=== PATIENT | male | born 1955 | race Caucasian/White ===

== ENCOUNTER 2017-07-25 11:14 | Inpatient (IN) | payer OTHER ==
[~2017-07-25] VITALS: Ht 180.3 cm; Wt 94.6 kg
[2017-07-25 11:15] VITALS: O2SAT 98
[2017-07-25] MEDS ORDERED: ceFAZolin 2 GM PREMIX 50 ML ONE (11:24)
[2017-07-25] MEDS ORDERED: TETANUS IMMUNE GLOBULIN (HUMAN) 250 UNITS/ML SYRINGE ONE (11:25)
[2017-07-25] MEDS ORDERED: HYDROmorphone HCL PF 1 MG/ML VIAL ONE (11:29)
[2017-07-25] MEDS ORDERED: ONDANSETRON HCL 4 MG/2 ML VIAL ONE (11:30)
[2017-07-25 11:36] LABS: AUTOMATED NEUTROPHIL # 3.4 TH/MM3 (1.8-7.7); BASOPHIL % 0.6 % (0.0-2.0); EOSINOPHIL # 0.1 TH/MM3 (0-0.4); EOSINOPHIL % 1.9 % (0.0-4.0); HEMATOCRIT 43.2 % (39.0-51.0); HEMO FLAGS DIFF FINAL; LYMPH % 32.2 % (9.0-44.0); LYMPHOCYTE # 1.8 TH/MM3 (1.0-4.8); MEAN CELL VOLUME 90.8 FL (80.0-100.0); MEAN CORPUSCULAR HEMOGLOBIN 31.6 PG (27.0-34.0); MEAN CORPUSCULAR HGB CONC 34.8 % (32.0-36.0); MONO % 5.2 % (0.0-8.0); NEUT % 60.1 % (16.0-70.0); PLATELET COUNT 164 TH/MM3 (150-450); RED BLOOD COUNT 4.77 MIL/MM3 (4.50-5.90); RED CELL DISTRIBUTION WIDTH 13.2 % (11.6-17.2); WHITE BLOOD COUNT 5.7 TH/MM3 (4.0-11.0)
[2017-07-25 11:40] LABS: I-STAT SODIUM 140 MMOL/L (138-146)
[2017-07-25 11:42] LABS: APTT (PATIENT) 23.1 SEC (24.3-30.1); PROTHROMBIN TIME - PATIENT 10.7 SEC (9.8-11.6)
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
[2017-07-25] MEDS ORDERED: LIDOCAINE 2%/EPINEPHrine 1:100,000 20ML MDV NERV BLOCK ONE (11:45)
[2017-07-25] MEDS ORDERED: IOHEXOL 350 MG/ML 10 ML VIAL (for RAD DIAG) IVCONTRAST ONE (11:53)
[2017-07-25] MEDS ORDERED: PHENYLEPH/NS 1000 MCG/10 ML SYR IV ONE (12:00)
[2017-07-25] MEDS ORDERED: PHENYLEPHRINE HCL 10 MG/ML VIAL IV ONE (12:00)
[2017-07-25] MEDS ORDERED: LACTATED RINGER'S 1000 ML INJ 1,000 ML IV ONE (12:00)
[2017-07-25] MEDS ORDERED: MIDAZOLAM HCL 2 MG/2 ML VIAL IV ONE (12:00)
[2017-07-25] MEDS ORDERED: LIDOCAINE HCL 1% PF 5 ML AMPULE OTHER ONE (12:00)
[2017-07-25] MEDS ORDERED: LABETALOL HCL 100 MG/20 ML VIAL IV ONE (12:00)
[2017-07-25] MEDS ORDERED: PROPOFOL 200 MG/20 ML AMP IV ONE (12:00)
[2017-07-25] MEDS ORDERED: ONDANSETRON HCL 4 MG/2 ML VIAL IV PUSH ONE (12:00)
[2017-07-25] MEDS ORDERED: MORPHINE SULFATE 4 MG/ML INJ IV ONE (12:00)
[2017-07-25] MEDS ORDERED: ePHEDrine/NS 25 MG/5 ML SYR IV ONE (12:00)
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
[2017-07-25] MEDS ORDERED: DIPHTH/TETANUS/ACEL PERTUSSIS (BOOSTER) 0.5 ML VIAL/PFS IM ONE (12:04)
[2017-07-25] MEDS ORDERED: ceFAZolin 2 GM PREMIX 50 ML IV STA (12:04)
[2017-07-25 12:05] LABS: ALCOHOL LESS THAN 3 MG/DL (0-5)
[2017-07-25 12:14] VITALS: BP 164/85; PULSE 68; RESP 20; O2SAT 100
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
[2017-07-25 13:11] VITALS: BP 162/87; PULSE 80; RESP 16; O2SAT 99
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
[2017-07-25 13:49] VITALS: BP 147/74; PULSE 70; RESP 20; O2SAT 99
[2017-07-25] MEDS ORDERED: ACETAMINOPHEN 1000 MG/100 ML 100 ML IV ONE (14:05)
[2017-07-25] MEDS ORDERED: GENTAMICIN SULFATE 80 MG/2 ML VIAL ONE (14:31)
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
--- NOTE | 2017-07-25 16:53 | RADRPT ---
EXAM DATE/TIME: 07/25/2017 16:22 [facility] COMPARISON: No previous studies available for comparison. INDICATIONS : Post ORIF, external fixation right wrist MEDICAL HISTORY : None. SURGICAL HISTORY : None. ENCOUNTER: Subsequent ACUITY: 1 day PAIN SCORE: Non-responsive. LOCATION: Right Wrist FINDINGS: 4 magnified C-arm spot views are centered over the wrist and labeled right. These reveal an orthopedi c plate along the palmar cortex of the distal radius with multiple anchoring screws. Good alignment n oted. 2 screws overlie the third metacarpal and two the midforearm consistent with an external fixato r. CONCLUSION: Limited images as detailed above. López Alvarenga Jr., MD on July 25, 2017 at 16:46 Board Certified Radiologist. This report was verified electronically.
[2017-07-25] MEDS ORDERED: ONDANSETRON HCL 4 MG/2 ML VIAL IV PUSH PRN ×2 (17:00→17:15)
[2017-07-25] MEDS ORDERED: ACETAMINOPHEN/HYDROcodone 325 MG/5 MG TAB PO PRN ×2 (17:00)
[2017-07-25] MEDS ORDERED: ACETAMINOPHEN 325 MG TAB PO PRN (17:00)
[2017-07-25] MEDS ORDERED: MAGNESIUM HYDROXIDE SUSP 30 ML CUP PO PRN (17:00)
[2017-07-25] MEDS ORDERED: SODIUM CHLORIDE 0.9% FLUSH 10 ML FLUSH IV FLUSH PRN ×2 (17:00→17:15)
[2017-07-25] MEDS ORDERED: MORPHINE SULFATE 4 MG/ML INJ IV PUSH PRN (17:00)
[2017-07-25] MEDS ORDERED: ENALAPRILAT 1.25 MG/ML VIAL IV PUSH PRN (17:15)
[2017-07-25] MEDS ORDERED: DO NOT ADM ANY ANTICOAGULANT DRUGS PRN (17:30)
[2017-07-25] MEDS ORDERED: *morphine SULFATE 8 MG/ML PERIprocedure ONLY ONE ×2 (17:48→17:57)
[2017-07-25] MEDS ORDERED: PANTOPRAZOLE SODIUM 40 MG VIAL IVP SCH (18:00)
--- NOTE | 2017-07-25 18:32 | RADRPT ---
EXAM DATE/TIME: 07/25/2017 18:07 [facility] COMPARISON: WRIST RIGHT COMPLETE ([id number]), July 25, 2017, 16:22. INDICATIONS : Post operative images. MEDICAL HISTORY : Prior fracture. SURGICAL HISTORY : Prior surgical repair of fracture. ENCOUNTER: Initial ACUITY: 1 day PAIN SCORE: Non-responsive. LOCATION: Right wrist. FINDINGS: 3 views of the right wrist show an external fixator device. An orthopedic plate is seen involving the palmar cortex of the distal radius with multiple anchoring screws. Good alignment appreciated. Ulnar styloid fracture and distal radial metaphyseal fracture are noted. The metaphyseal fracture does ext end to the articular surface. CONCLUSION: Fractures with orthopedic hardware as detailed above. López Alvarenga Jr., MD on July 25, 2017 at 18:26 Board Certified Radiologist. This report was verified electronically.
[2017-07-25] MEDS: SODIUM CHLORIDE 0.9% FLUSH 10 ML FLUSH IV FLUSH SCH (20:39)
[2017-07-25 20:40] VITALS: BP 144/87; PULSE 67; RESP 17; TEMP 97; O2SAT 92
[2017-07-25] MEDS ORDERED: DOCUSATE SODIUM 100 MG CAP PO SCH (21:00)
[2017-07-25] MEDS: CYCLOBENZAPRINE HCL 10 MG TAB PO SCH (22:54)
[2017-07-25] MEDS: HYDROmorphone HCL PF 2 MG/ML VIAL IV PRN (23:03)
[2017-07-26] VITALS (9 sets, daily range): BP systolic 122–138; BP diastolic 67–87; PULSE 72–78; RESP 17–18; TEMP 98.8–99.6; O2SAT 95–97
[2017-07-26] MEDS: ACETAMINOPHEN/HYDROcodone 325 MG/10 MG TAB PO PRN ×6 (02:40→22:30)
[2017-07-26] MEDS: HYDROmorphone HCL PF 2 MG/ML VIAL IV PRN ×5 (03:03→21:28)
[2017-07-26] MEDS: CYCLOBENZAPRINE HCL 10 MG TAB PO SCH ×3 (06:22→21:28)
[2017-07-26] MEDS ORDERED: LACTULOSE SYRUP 20 GM/30 ML CUP PO PRN (07:45)
[2017-07-26] MEDS: DOCUSATE SODIUM 50 MG/SENNA 8.6 MG TAB PO SCH ×2 (08:56→19:49)
[2017-07-26] MEDS: FAMOTIDINE 20 MG TAB PO SCH ×2 (08:56→19:49)
[2017-07-26] MEDS: SODIUM CHLORIDE 0.9% FLUSH 10 ML FLUSH IV FLUSH SCH ×2 (08:56→19:50)
--- NOTE | 2017-07-26 10:46 | EKG ---
Date Performed: 07/25/2017 Time Performed: 13:33:10 PTAGE: 62 years EKG: Sinus rhythm NORMAL ECG NO PREVIOUS TRACING DOCTOR: Chicho [place] Interpretating Date/Time 07/26/2017 10:39:58
[2017-07-26 12:13] LABS: AUTOMATED NEUTROPHIL # 7.1 TH/MM3 (1.8-7.7); BASOPHIL % 0.2 % (0.0-2.0); EOSINOPHIL # 0.1 TH/MM3 (0-0.4); HEMATOCRIT 39.9 % (39.0-51.0); HEMO FLAGS DIFF FINAL; LYMPH % 15.3 % (9.0-44.0); LYMPHOCYTE # 1.4 TH/MM3 (1.0-4.8); MEAN CELL VOLUME 92.5 FL (80.0-100.0); MEAN CORPUSCULAR HEMOGLOBIN 31.6 PG (27.0-34.0); MEAN CORPUSCULAR HGB CONC 34.1 % (32.0-36.0); MONO % 6.7 % (0.0-8.0); NEUT % 76.8 % (16.0-70.0); PLATELET COUNT 137 TH/MM3 (150-450); RED BLOOD COUNT 4.32 MIL/MM3 (4.50-5.90); RED CELL DISTRIBUTION WIDTH 13.4 % (11.6-17.2); WHITE BLOOD COUNT 9.2 TH/MM3 (4.0-11.0)
[2017-07-26 12:37] LABS: BICARBONATE 28.2 MEQ/L (21.0-32.0); POTASSIUM 3.6 MEQ/L (3.5-5.1)
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
[2017-07-27] VITALS: BP 134/74; PULSE 68; RESP 17; TEMP 98.8; O2SAT 98
[2017-07-27 00:45] VITALS: O2SAT 97
[2017-07-27] MEDS: HYDROmorphone HCL PF 2 MG/ML VIAL IV PRN ×2 (01:42→06:23)
[2017-07-27] MEDS: ACETAMINOPHEN/HYDROcodone 325 MG/10 MG TAB PO PRN ×3 (03:07→12:52)
[2017-07-27 05:52] LABS: AUTOMATED NEUTROPHIL # 7.2 TH/MM3 (1.8-7.7); BASOPHIL % 0.4 % (0.0-2.0); EOSINOPHIL # 0.2 TH/MM3 (0-0.4); EOSINOPHIL % 2.1 % (0.0-4.0); HEMATOCRIT 42.2 % (39.0-51.0); HEMO FLAGS DIFF FINAL; LYMPH % 28.1 % (9.0-44.0); LYMPHOCYTE # 3.2 TH/MM3 (1.0-4.8); MEAN CELL VOLUME 93.4 FL (80.0-100.0); MEAN CORPUSCULAR HEMOGLOBIN 31.7 PG (27.0-34.0); MONO % 6.9 % (0.0-8.0); NEUT % 62.5 % (16.0-70.0); PLATELET COUNT 152 TH/MM3 (150-450); RED BLOOD COUNT 4.51 MIL/MM3 (4.50-5.90); RED CELL DISTRIBUTION WIDTH 13.7 % (11.6-17.2); WHITE BLOOD COUNT 11.5 TH/MM3 (4.0-11.0)
[2017-07-27 06:03] LABS: ALT (GPT) 22 U/L (12-78); ANION GAP 8 MEQ/L (5-15); AST (GOT) 18 U/L (15-37); BICARBONATE 25.3 MEQ/L (21.0-32.0); BLOOD UREA NITROGEN 10 MG/DL (7-18); CHLORIDE 103 MEQ/L (98-107); GLOMERULAR FILTRATION RATE 77 ML/MIN (>89); POTASSIUM 3.8 MEQ/L (3.5-5.1); SODIUM (NA) 136 MEQ/L (136-145)
[2017-07-27 06:05] LABS: ALKALINE PHOSPHATASE 56 U/L (45-117); TOTAL BILIRUBIN ADULT 0.8 MG/DL (0.2-1.0)
[2017-07-27] MEDS: CYCLOBENZAPRINE HCL 10 MG TAB PO SCH (06:22)
[2017-07-27] MEDS ORDERED: SENN1TAB PO (07:52)
[2017-07-27 08:00] VITALS: BP 114/70; PULSE 72; RESP 20; TEMP 100.2; O2SAT 100
[2017-07-27] MEDS: DOCUSATE SODIUM 50 MG/SENNA 8.6 MG TAB PO SCH (08:40)
[2017-07-27] MEDS: FAMOTIDINE 20 MG TAB PO SCH (08:40)
[2017-07-27] MEDS: SODIUM CHLORIDE 0.9% FLUSH 10 ML FLUSH IV FLUSH SCH (08:41)
[2017-07-27 12:00] VITALS: BP 119/69; PULSE 89; RESP 20; TEMP 99; O2SAT 98
[2017-07-27] MEDS ORDERED: HYDR-3516 PO (13:02)
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
[2017-07-27 15:50] VITALS: BP 137/80; PULSE 75; RESP 20; TEMP 98.5; O2SAT 98
== END 2017-07-27 16:38 | disposition home health service (06) | DRG 501 ==
LOC: NEPE 11:14 → NEDA 13:17 → N06A 18:42
PROVIDERS: ADMIT Surgery; ATTEND Surgery
PROC: 0JQH0ZZ Repair Left Lower Arm Subcutaneous Tissue and Fascia, Open Approach (ICD-10-PCS; 2017-07-25)
PROC: 0PSKXZZ Reposition Right Ulna, External Approach (ICD-10-PCS; 2017-07-25)
PROC: 0PSH04Z Reposition Right Radius with Internal Fixation Device, Open Approach (ICD-10-PCS; principal; 2017-07-25 14:17)
DX: S52.571A Other intraarticular fracture of lower end of right radius, initial encounter for closed fracture (principal); S32.049A Unspecified fracture of fourth lumbar vertebra, initial encounter for closed fracture; K76.9 Liver disease, unspecified; S52.611A Displaced fracture of right ulna styloid process, initial encounter for closed fracture; R91.1 Solitary pulmonary nodule; V29.9XXA Motorcycle rider (driver) (passenger) injured in unspecified traffic accident, initial encounter; Y92.410 Unspecified street and highway as the place of occurrence of the external cause; S51.012A Laceration without foreign body of left elbow, initial encounter; S51.812A Laceration without foreign body of left forearm, initial encounter
CPT/HCPCS: 70450; 71010; 71260; 72125; 72170; 73070; 73090; 73100; 73110; 74177; 76000; 80048; 80053; 80307; 82435; 82565; 82947; 84132; 84295; 84520; 85025; 85610; 85730; 86850; 86900; 86901; 93005; 94150; C1713; C9113; J0131; J0690; J1170; J1580; J1670; J2250; J2270; J2370; J2405; J3010; J7120; Q9967